=== PATIENT | female | born 1960 | race Caucasian/White ===

== ENCOUNTER 2022-11-04 07:47 | Day surgery (SDC) | payer MEDICAID ==
[2022-11-04] MEDS: Lactated Ringers 1,000 ML IV SCH (08:25)
[2022-11-04] MEDS ORDERED: Midazolam 1 MG/ML 2 ML SDV ONE (08:34)
[2022-11-04] MEDS ORDERED: Propofol 200 MG/20 ML SDV ONE (08:34)
[2022-11-04] MEDS ORDERED: Lactated Ringers 1,000 ML IV SCH (11:30)
[2022-11-04] MEDS ORDERED: Sodium Chloride 0.9% 10 ML Syringe FLUSH PRN (11:59)
== END 2022-11-04 10:19 | disposition home or self-care (01) ==
LOC: LL.SDS 07:47
PROVIDERS: ATTEND Surgery
DX: Z12.11 Encounter for screening for malignant neoplasm of colon (principal); D12.2 Benign neoplasm of ascending colon; D12.3 Benign neoplasm of transverse colon; E11.9 Type 2 diabetes mellitus without complications; Z88.2 Allergy status to sulfonamides; Z88.5 Allergy status to narcotic agent; Z79.84 Long term (current) use of oral hypoglycemic drugs; Z79.899 Other long term (current) drug therapy
CPT/HCPCS: 00812; J2250; J2704; J7120